=== PATIENT | female | born 1965 | race Caucasian/White ===

== ENCOUNTER 2017-10-31 11:34 | Day surgery (SDC) | payer OTHER ==
[~2017-10-31] VITALS: Ht 154.9 cm; Wt 61.8 kg
[2017-10-31 12:36] VITALS: Ht 154.9 cm; Wt 61.8 kg
[2017-10-31] MEDS ORDERED: GLIP-95 PO (12:56)
[2017-10-31] MEDS ORDERED: OMEP20CA16 PO (12:56)
[2017-10-31] MEDS ORDERED: LANT3I SC (12:56)
[2017-10-31] MEDS ORDERED: LISINOPRIL PO (12:56)
[2017-10-31] MEDS ORDERED: ATORVASTATIN PO (12:56)
[2017-10-31] MEDS ORDERED: ASPI-535 PO (12:56)
[2017-10-31] MEDS ORDERED: JANUVIA PO (12:56)
[2017-10-31] MEDS ORDERED: METF500T60 PO (12:56)
[2017-10-31] MEDS ORDERED: CITA10TA84 PO (12:56)
[2017-10-31 13:02] VITALS: BP 114/64; PULSE 68; RESP 12
--- NOTE | 2017-10-31 14:10 | OPPN ---
Date/Time of Note Date/Time of Note DATE: 10/31/17 TIME: 14:08 Operative Report Preoperative Diagnosis Screening Postoperative Diagnosis Internal hemorrhoids No colon neoplasm is identified Operation/Procedure Performed Colonoscopy Surgeon see signature line commissary assistant None Anesthesia: MAC Estimated blood loss: none Transfusion Required none Specimen None Grafts/Implants none Complications none COREY WHITE MD Oct 31, 2017 14:10
[2017-10-31 14:28] VITALS: BP 98/56; PULSE 63
--- NOTE | 2017-10-31 19:37 | GILP ---
DATE OF PROCEDURE: NAME OF PROCEDURE: Colonoscopy. SURGEON: Corey White MD PREOPERATIVE DIAGNOSIS: Screening colonoscopy. POSTOPERATIVE DIAGNOSES 1. Colonoscopy all the way to the cecum. 2. Internal hemorrhoids. 3. No colon neoplasm was identified. INDICATION FOR THE PROCEDURE: Ms. Rukhsana Wolfe is a 51-year-old female patient who was scheduled fo r screening colonoscopy. The procedure and possible complications were well explained to the patient. She understood and con sented to the procedure. DESCRIPTION OF PROCEDURE: Under the influence of anesthesia, the colonoscope was carefully introduc ed in the rectum, and under direct vision, it was advanced all the way to the cecum. FINDINGS: The patient had internal hemorrhoids. No colon neoplasm was identified. She tolerated the procedure very well, and there were no complication from the procedure. At the en d of the procedure, she was awake with stable vital signs and she was discharged home to the care of her family. IMPRESSION: Please see postoperative diagnoses. PLAN: Next screening colonoscopy in 10 years. Dictated By: COREY WHITE MD GD/VITO Conf#: [id number] DID#: [id number] CC: COREY WHITE MD;*EndCC*
== END 2017-10-31 15:56 | disposition home or self-care (01) ==
LOC: GIL 11:34
PROVIDERS: ATTEND Internal Medicine Gastroenterology
DX: Z12.11 Encounter for screening for malignant neoplasm of colon (principal); K64.8 Other hemorrhoids; E11.9 Type 2 diabetes mellitus without complications; E78.5 Hyperlipidemia, unspecified; F41.8 Other specified anxiety disorders
CPT/HCPCS: 82962